=== PATIENT | female | born 1985 | race Hispanic/Latino ===

== ENCOUNTER → 2022-01-16 | Outpatient (CLI) | payer OTHER ==
[~2022-01-16] VITALS: Ht 27.9 cm; Wt 98.4 kg
== END | disposition home or self-care (01) ==
LOC: DTH 08:34
PROVIDERS: ATTEND Surgery
DX: Z71.3 Dietary counseling and surveillance (principal); G47.33 Obstructive sleep apnea (adult) (pediatric); E66.01 Morbid (severe) obesity due to excess calories; Z68.41 Body mass index [BMI] 40.0-44.9, adult
CPT/HCPCS: 97802

== ENCOUNTER → 2022-02-09 | Outpatient (CLI) | payer OTHER | END | disposition home or self-care (01) | LOC: EDUNIT# 15:00 → DTH 15:09 | PROVIDERS: ATTEND Surgery | DX: Z71.3 Dietary counseling and surveillance (principal); G47.33 Obstructive sleep apnea (adult) (pediatric); E66.01 Morbid (severe) obesity due to excess calories; Z68.41 Body mass index [BMI] 40.0-44.9, adult | CPT/HCPCS: 97803 ==

== ENCOUNTER → 2022-03-07 | Outpatient (CLI) | payer OTHER | END | disposition home or self-care (01) | LOC: EDUNIT# 15:00 → DTH 15:11 | PROVIDERS: ATTEND Surgery | DX: Z71.3 Dietary counseling and surveillance (principal); G47.33 Obstructive sleep apnea (adult) (pediatric); E66.01 Morbid (severe) obesity due to excess calories; Z68.41 Body mass index [BMI] 40.0-44.9, adult | CPT/HCPCS: 97803 ==

== ENCOUNTER 2022-04-27 09:00 | Inpatient (IN) | payer OTHER ==
[~2022-04-27] VITALS: Ht 149.9 cm; Wt 95.3 kg
[2022-05-02] MEDS: HEPARIN 5,000 UNIT VIAL SQ SCH (06:30)
[2022-05-02] MEDS: CEFOXITIN SODIUM 2 GM VIAL IVP SCH (06:30)
[2022-05-02 08:53] LABS: BASOPHILS % (AUTO) 0.3 % (0.0-5.0); EOSINOPHILS % (AUTO) 0.3 % (0.0-8.0); HEMATOCRIT 44.5 % (36-48); LYMPHOCYTES % (AUTO) 29.8 % (21.0-51.0); MEAN CORPUSCULAR HEMOGLOBIN 29.3 pg (27.0-33.0); MEAN CORPUSCULAR HGB CONC 32.8 g/dL (32.0-36.0); MEAN CORPUSCULAR VOLUME 89.2 fL (79-99); MONOCYTES % (AUTO) 6.9 % (3.0-13.0); NEUTROPHILS % (AUTO) 62.5 % (40.0-77.0); PLATELET COUNT (AUTO) 251 K/uL (130-400); RED BLOOD CELL COUNT(AUTO) 4.99 MIL/uL (4.00-5.50); RED CELL DISTRIBUTION WIDTH 12.5 % (11.0-15.5); WHITE BLOOD COUNT (AUTO) 5.9 K/uL (4.8-10.8)
[2022-05-02 09:36] LABS: CREATININE 0.8 mg/dL (0.5-1.5); POTASSIUM 4.1 mmol/L (3.5-5.1)
[2022-05-03] MEDS: HEPARIN 5,000 UNIT VIAL SQ SCH (09:00)
[2022-05-03] MEDS: CEFOXITIN SODIUM 2 GM VIAL IVP SCH (09:00)
[2022-05-03 12:34] VITALS: BP 96/57
[2022-05-03] MEDS ORDERED: MV-M1TAB20 PO (14:04)
[2022-05-04] VITALS (24 sets, daily range): BP systolic 77–138; BP diastolic 38–84
[2022-05-04] MEDS ORDERED: BUPIVACAINE/EPI/PF 0.5% 30ML VIAL IJ ONE (04:18)
[2022-05-04] MEDS ORDERED: METHYLENE BLUE 5 MG/ML AMP ONE (04:19)
[2022-05-04] MEDS ORDERED: KETOROLAC 30MG VIAL (30MG/ML) ONE (04:51)
[2022-05-04] MEDS ORDERED: MAGNESIUM SULFATE 1 GM/2 ML VIAL ONE (04:51)
[2022-05-04] MEDS ORDERED: KETAMINE 50MG/ML SYRINGE 50 MG/ML DISP.SYRIN IV ONE (04:51)
[2022-05-04] MEDS ORDERED: DEXMEDETOMIDINE HCL 200 MCG/2 ML VIAL IV ONE (04:51)
[2022-05-04] MEDS ORDERED: LACTATED RINGERS 1000ML 1,000 ML IV ONE (06:12)
[2022-05-04] MEDS ORDERED: PROPOFOL 10 MG/ML 20ML VIAL IV ONE (06:40)
[2022-05-04] MEDS ORDERED: MIDAZOLAM HCL 1 MG/ML 2ML VIAL ONE (06:40)
[2022-05-04] MEDS ORDERED: ROCURONIUM 10MG/1ML SYR 10 MG/ML ML ONE ×2 (06:41→07:30)
[2022-05-04] MEDS ORDERED: FENTANYL CITRATE PF 50 MCG/1 ML 5ML AMP IV ONE (06:43)
[2022-05-04] MEDS ORDERED: SCOPOLAMINE HYDROBROMIDE 1 EACH ADH..PATCH TD ONE (06:44)
[2022-05-04] MEDS ORDERED: ONDANSETRON 4MG INJ ONE (06:53)
[2022-05-04] MEDS: CEFOXITIN SODIUM 2 GM VIAL IVP SCH ×2 (07:15→09:00)
[2022-05-04] MEDS ORDERED: GLYCOPYRROLATE 1 MG/5 ML SYRINGE ONE ×2 (07:19→08:21)
[2022-05-04] MEDS ORDERED: NEOSTIGMINE 5MG/5ML SYR IV ONE (08:22)
[2022-05-04] MEDS ORDERED: PHENYLEPHRINE HCL 10 MG/ML 1ML VIAL IV ONE (08:23)
[2022-05-04] MEDS ORDERED: CALDOLOR 800MG+NS 250ML 250 ML IV ONE (08:52)
[2022-05-04] MEDS ORDERED: METOCLOPRAMIDE 10 MG/2 ML VIAL ONE (09:00)
[2022-05-04] MEDS: HEPARIN 5,000 UNIT VIAL SQ SCH ×3 (09:00→23:00)
[2022-05-04] MEDS ORDERED: MEPERIDINE-PF 25 MG/ML SYG ONE (09:28)
[2022-05-04] MEDS: LACTATED RINGERS 1000ML 1,000 ML IV SCH (11:00)
[2022-05-04] MEDS ORDERED: HEPARIN 5,000 UNIT VIAL SQ SCH (11:00)
[2022-05-04] MEDS ORDERED: MORPHINE 2 MG SYG IM PRN ×2 (11:00)
[2022-05-04] MEDS ORDERED: PROMETHAZINE HCL 25 MG/ML 1ML AMPULE IM PRN ×3 (11:00)
[2022-05-04] MEDS ORDERED: HYDROMORPHONE-NS 0.2MG/ML 50ML PCA CASSETTE IV SCH (11:00)
[2022-05-04] MEDS ORDERED: MORPHINE 4 MG SYG IM PRN (11:00)
[2022-05-04] MEDS ORDERED: ERGOCALCIFEROL (VITAMIN D2) 50,000 UNIT CAPSULE PO SCH (14:57)
[2022-05-04] MEDS: CALDOLOR 800MG+NS 250ML 250 ML IV SCH (17:12)
[2022-05-04] MEDS: FE FUMARATE/FA/MV, MIN COMB#15 1 TAB PO SCH (17:12)
[2022-05-04] MEDS: FAMOTIDINE 20MG VIAL IV SCH (21:00)
[2022-05-05] VITALS: BP 102/60
[2022-05-05] MEDS: CALDOLOR 800MG+NS 250ML 250 ML IV SCH (02:42)
[2022-05-05 03:57] VITALS: BP 97/53
[2022-05-05] MEDS ORDERED: APAP/CODEINE 120/12MG 5ML PO PRN (07:30)
[2022-05-05 08:20] VITALS: BP 119/69
[2022-05-05] MEDS: FE FUMARATE/FA/MV, MIN COMB#15 1 TAB PO SCH (08:24)
[2022-05-05] MEDS: FAMOTIDINE 20MG VIAL IV SCH (08:24)
[2022-05-05] MEDS: HEPARIN 5,000 UNIT VIAL SQ SCH ×2 (08:38→11:00)
[2022-05-05] MEDS: CEFOXITIN SODIUM 2 GM VIAL IVP SCH (09:00)
[2022-05-05] MEDS: LACTATED RINGERS 1000ML 1,000 ML IV SCH (11:10)
[2022-05-05 12:00] VITALS: BP 95/56
[2022-05-11] MEDS ORDERED: NON-FORMULARY MEDICATION 1 EACH (Mv-Mn/Iron/FA/Herbal Cmplx#190 (Vitamin D3 Complete Caple PO SCH (09:00)
== END 2022-05-05 14:29 | disposition home or self-care (01) | DRG 621 ==
LOC: DAHIP 05-04 05:42 → 4BH 05-04 10:26
PROVIDERS: ADMIT Surgery; ATTEND Surgery
PROC: 0DB64Z3 Excision of Stomach, Percutaneous Endoscopic Approach, Vertical (ICD-10-PCS; principal; 2022-05-04 07:04)
DX: E66.01 Morbid (severe) obesity due to excess calories (principal); Z68.41 Body mass index [BMI] 40.0-44.9, adult; Z20.822 Contact with and (suspected) exposure to COVID-19
CPT/HCPCS: 36415; 80048; 82948; 84703; 85025; 87426; 93005; G0378; J0694; J1170; J1644; J1741; J1885; J2175; J2250; J2270; J2370; J2405; J2704; J2710; J2765; J3010; J3475; J3490; J7030; J7120; Q9968

== ENCOUNTER 2022-07-07 06:26 | Day surgery (SDC) | payer OTHER ==
[2022-07-03 16:18] LABS: BASOPHILS % (AUTO) 0.5 % (0.0-5.0); EOSINOPHILS % (AUTO) 0.6 % (0.0-8.0); HEMATOCRIT 43.7 % (36-48); LYMPHOCYTES % (AUTO) 30.9 % (21.0-51.0); MEAN CORPUSCULAR HEMOGLOBIN 29.5 pg (27.0-33.0); MEAN CORPUSCULAR HGB CONC 31.6 g/dL (32.0-36.0); MEAN CORPUSCULAR VOLUME 93.4 fL (79-99); MONOCYTES % (AUTO) 6.9 % (3.0-13.0); NEUTROPHILS % (AUTO) 60.8 % (40.0-77.0); PLATELET COUNT (AUTO) 246 K/uL (130-400); RED BLOOD CELL COUNT(AUTO) 4.68 MIL/uL (4.00-5.50); WHITE BLOOD COUNT (AUTO) 6.2 K/uL (4.8-10.8)
[2022-07-06 08:52] VITALS: BP 85/52
[~2022-07-07] VITALS: Ht 149.9 cm; Wt 84.9 kg
[2022-07-07] VITALS (16 sets, daily range): BP systolic 93–117; BP diastolic 47–65
[~2022-07-07 06:26] MED LIST: MULT-1330 PO; calcium PO; mvi PO; vitamin d2 PO
[2022-07-07] MEDS ORDERED: LACTATED RINGERS 1000ML 1,000 ML IV ONE (06:27)
[2022-07-07] MEDS ORDERED: CEFAZOLIN SODIUM 2 GM VIAL ONE (06:27)
[2022-07-07] MEDS ORDERED: BUPIVACAINE/PF 0.5% 30ML VIAL ONE (06:54)
[2022-07-07] MEDS ORDERED: CEFAZOLIN SODIUM 2 GM VIAL IVPB SCH (08:00)
[2022-07-07] MEDS ORDERED: DEXAMETHASONE SOD PHOSPHATE 10MG/ML 1ML VIAL ONE (08:30)
[2022-07-07] MEDS ORDERED: FENTANYL CITRATE PF 50 MCG/1 ML 2ML VIAL ONE (08:30)
[2022-07-07] MEDS ORDERED: ONDANSETRON 4MG INJ ONE (08:30)
[2022-07-07] MEDS ORDERED: LIDOCAINE PF 100MG/5ML (2%) SYRINGE 5ML ONE (08:30)
[2022-07-07] MEDS ORDERED: SUCCINYLCHOLINE CHLORIDE 20 MG/ML 10 ML VIAL ONE (08:30)
[2022-07-07] MEDS ORDERED: GLYCOPYRROLATE 1 MG/5 ML SYRINGE ONE (08:30)
[2022-07-07] MEDS ORDERED: PROPOFOL 10 MG/ML 20ML VIAL IV ONE (08:31)
[2022-07-07] MEDS ORDERED: NEOSTIGMINE 5MG/5ML SYR IV ONE (08:31)
[2022-07-07] MEDS ORDERED: ROCURONIUM 10MG/1ML SYR 10 MG/ML ML ONE (08:36)
[2022-07-07] MEDS ORDERED: MIDAZOLAM HCL 1 MG/ML 2ML VIAL ONE (08:36)
[2022-07-07] MEDS ORDERED: MEPERIDINE-PF 25 MG/ML SYG ONE (09:48)
== END 2022-07-07 11:15 | disposition home or self-care (01) ==
LOC: DAH 06:26
PROVIDERS: ATTEND Obstetrics & Gynecology
DX: Z30.2 Encounter for sterilization (principal); Z20.822 Contact with and (suspected) exposure to COVID-19; K66.0 Peritoneal adhesions (postprocedural) (postinfection); E66.9 Obesity, unspecified; Z98.84 Bariatric surgery status; Z98.891 History of uterine scar from previous surgery
CPT/HCPCS: 84703; 85025; 86850 ×2; 86900 ×2; 86901 ×2; 87426; 36415 ×2; 58661; 81025; A4663; A4351; A4606; J7120; J3010; J3490 ×2; J1100; J2710; J0330; J2001; J2250; J2704; J2405; J2175; J0690; C1769 ×3; G0168; A4215 ×2; A4223; A4222; A4221; A4600